=== PATIENT | female | born 1940 | race Caucasian/White ===

== ENCOUNTER 2020-05-25 14:12 | Outpatient (RCR) | payer MEDICARE, SELFPAY ==
[2020-03-20 13:30] VITALS: BMI 32.4
== END 2020-05-25 23:59 ==
LOC: IMMUN 14:12
PROVIDERS: PCP Internal Medicine; Referring Provider Family Medicine; Visit Provider Family Medicine
DX: Z23 Encounter for immunization (principal)
CPT/HCPCS: 0011A; 0012A; 91301

== ENCOUNTER → 2021-11-27 | Outpatient (CLI) | payer MEDICARE, OTHER, SELFPAY ==
--- NOTE | 2021-11-27 13:52 | ECHOD_ITS ---
Reason For Study: HTN Procedure This was a 2D Doppler, Color Flow transthoracic echocardiogram. Exam performed in department. Left Ventricle Normal LV size. Left ventricular systolic function is normal. The estimated ejection fraction is 60 %. Stage 1 diastolic dysfunction. No regional wall motion abnormalities noted. Right Ventricle Normal RV size. Normal systolic function. Atria Normal left atrium. Normal right atrium. Mitral Valve Normal mitral valve. Tricuspid Valve Normal tricuspid valve. Mild tricuspid valve insufficiency. Pulmonary artery systolic pressure is 20 mmHg. Aortic Valve Normal aortic valve. Trisinus/trileaflet aortic valve. Pulmonic Valve Normal pulmonic valve. Great Vessels Normal aortic root. The pulmonary artery is normal size. Normal inferior vena cava. Pericardium/Pleural No pericardial effusion. MMode/2D Measurements & Calculations LVIDd: 5.1 cm IVSd: 1.1 cm Ao root diam: 3.0 cm LVIDs: 3.0 cm LVPWd: 1.1 cm RVDd: 2.9 cm FS: 41.2 % LAV(MOD-bp): 40.4 ml LVAd ap4: 24.0 cm2 SV(MOD-sp4): 42.6 ml LAV(MOD-bp) Indexed: 22.1 ml/m2 LVLd ap4: 7.4 cm LAV(MOD-sp2): 41.0 ml EDV(MOD-sp4): 63.0 ml LAV(MOD-sp4): 33.5 ml EDV(sp4-el): 66.2 ml LVAs ap4: 11.8 cm2 LVLs ap4: 5.9 cm ESV(MOD-sp4): 20.4 ml ESV(sp4-el): 20.2 ml EF(MOD-sp4): 67.6 % EF(sp4-el): 69.5 % SV(sp4-el): 46.0 ml LA A4 area: 12.8 cm2 LA dimension(2D): 4.0 cm RA A4 area: 8.8 cm2 Doppler Measurements & Calculations MV E max oscar: 61.3 cm/sec Lat Peak E' Oscar: 5.0 cm/sec Med Peak E' Oscar: 4.1 cm/sec MV A max oscar: 105.3 cm/sec E/E' lat: 12.2 E/E' med: 14.9 MV E/A: 0.58 Ao V2 max: 135.4 cm/sec LV V1 max: 106.5 cm/sec PA V2 max: 97.2 cm/sec Ao max P.3 mmHg LV V1 max P.5 mmHg Ao V2 mean: 93.5 cm/sec Ao mean P.9 mmHg Ao V2 VTI: 28.1 cm TR max oscar: 203.6 cm/sec TR max P.6 mmHg ECHO/Echo Complete Interpretation Summary Normal LV size. Left ventricular systolic function is normal. The estimated ejection fraction is 60 %. Stage 1 diastolic dysfunction. Ordering Physician: Brandyn Luis Referring Physician: Alfredo Arenas Performed By: Renata Juarez, RDCS, RVT
== END | disposition home or self-care (01) ==
PROVIDERS: PCP Internal Medicine; Visit Provider Internal Medicine Cardiovascular Disease
DX: I10 Essential (primary) hypertension (principal); R00.2 Palpitations
CPT/HCPCS: 93306

== ENCOUNTER → 2022-01-02 | Outpatient (CLI) | payer MEDICARE, OTHER, SELFPAY ==
--- NOTE | 2022-01-02 15:19 | MRI_ITS ---
STUDY: MRI LUMBAR SPINE WITHOUT CONTRAST REASON FOR EXAM: Female, 81 years old. Back pain with right radiculopathy, spinal stenosis TECHNIQUE: Standardized fat and water weighted pulse sequences were obtained in the sagittal and axial planes. COMPARISON: None FINDINGS: T12-L1: Mild disc bulge and facet arthrosis. No spinal canal or neural foraminal stenosis. Normal lumbar lordosis. Levoscoliosis centered on L3 with mild rightward listhesis of L2 on L3, mild leftward listhesis of L3 and L4, and rightward disc height loss and endplate disease with mild edema at both levels. Normal conus medullaris that terminates at the level of T12-L1. L1-2: Disc bulge, mild facet arthrosis, and epidural lipomatosis with mild spinal canal stenosis. L2-3: Disc bulge eccentric to the right, mild facet arthrosis, and epidural lipomatosis with mild spinal canal stenosis. Moderate right neural foraminal stenosis. L3-4: Disc bulge, moderate right and mild left facet arthrosis, and epidural lipomatosis with moderate spinal canal stenosis and partial CSF effacement. Moderate right neural foraminal stenosis. L4-5: Mild disc bulge, epidural lipomatosis, and mild facet arthrosis with mild spinal canal stenosis. Mild left neural foraminal stenosis. L5-S1: Disc bulge eccentric to the left, mild right facet arthrosis, and moderate left facet arthrosis. No spinal canal stenosis. Mild to moderate left neural foraminal stenosis. Normal visualized sacral ala. There is mild paraspinal muscular atrophy. MRI/Spine Lumbar (Routine) IMPRESSION: 1. Leftward subluxation of L3 with respect to L2 and L4, with moderate rightward spinal canal stenosis at L2-3 and L3-4. 2. Disc bulge causes mass effect in the lateral recesses on the traversing right L3 nerve root at L2-3, and both L4 nerve roots at L3-4. 3. There is also moderate L3-4 spinal canal stenosis. Electronically Signed: Aris Key MD at 4:50 EDT ,
== END | disposition home or self-care (01) ==
LOC: MRI 15:19
PROVIDERS: PCP Internal Medicine; Visit Provider Orthopaedic Surgery
DX: M48.061 Spinal stenosis, lumbar region without neurogenic claudication (principal)
CPT/HCPCS: 72148

== ENCOUNTER → 2022-07-01 | Outpatient (CLI) | payer MEDICARE, OTHER, SELFPAY ==
--- NOTE | 2022-07-01 15:43 | MRI_ITS ---
EXAM: MR LEFT LOWER EXTREMITY WITHOUT INTRAVENOUS CONTRAST, KNEE CLINICAL INDICATION: pain TECHNIQUE: Multiplanar and multisequence MR images of the left knee without intravenous contrast. This report was created using [employer] report generation technology. COMPARISON: None. FINDINGS: BONES/JOINTS: Relatively mild tricompartmental degenerative changes for age. EXTENSOR MECHANISM: Unremarkable. MEDIAL MENISCUS: Complex tear of the posterior horn of the medial meniscus with extension of a flap of tissue cranially and peripherally resulting in bulging of the proximal to midportion of the medial collateral ligament. LATERAL MENISCUS: Unremarkable. MEDIAL CAPSULE/SUPPORTING STRUCTURES: See above. LATERAL CAPSULE/SUPPORTING STRUCTURES: Unremarkable. Lateral collateral ligamentous complex, inclusive of the popliteal tendon, are intact. ANTERIOR CRUCIATE LIGAMENT: Unremarkable. Intact. POSTERIOR CRUCIATE LIGAMENT: Unremarkable. Intact. MUSCLES: Unremarkable. CARTILAGE: Unremarkable. Intact. FLUID: Moderate suprapatellar joint effusion. Small to moderate-sized Moran''s cyst measuring 3.6 x 1.5 cm without evidence of leakage or rupture. OTHER SOFT TISSUES: Prepatellar tendon subcutaneous edema. MRI/Lower Ext Joint Only (Routine) IMPRESSION: 1. Complex tear involving the posterior horn of the medial meniscus. 2. Moderate joint effusion with moderate-sized Moran''s cyst. Electronically Signed: Aditya Kent MD at 1:48 EST ,
== END | disposition home or self-care (01) ==
LOC: MRI 15:28
PROVIDERS: PCP Internal Medicine; Referring Provider Orthopaedic Surgery; Visit Provider Orthopaedic Surgery
DX: M17.11 Unilateral primary osteoarthritis, right knee (principal)
CPT/HCPCS: 73721

== ENCOUNTER 2022-07-29 06:08 | Day surgery (SDC) | payer MEDICARE, OTHER, SELFPAY ==
--- NOTE | 2022-07-24 12:55 | EKG12_ITS ---
Test Reason : PREOP Blood Pressure : / mmHG Vent. Rate : 064 BPM Atrial Rate : 064 BPM P-R Int : 166 ms QRS Dur : 090 ms QT Int : 410 ms P-R-T Axes : 045 -02 053 degrees QTc Int : 422 ms Normal sinus rhythm Normal ECG Confirmed by COLEMAN BARLOW, COLLEEN ([id number]), videotape editor DEB CAMPBELL ([id number]) on 07/28/2022 10:43:59 AM Referred By: Abran Han Confirmed By:TATY CEE MD
[2022-07-24 13:42] LABS: Hematocrit 42.2 % (37-47); Hemoglobin 14.6 g/dL (12.0-15.0); Mean Corp Hgb Conc 34.6 g/dL (32-36); Mean Corpuscular Hgb 30.6 pg (27.0-32.0); Mean Corpuscular Volume 88.5 fL (81-99); Mean Platelet Vol. 10.5 fl (6.2-12.0); Platelet Count 206 K/mm3 (150-450); RBC Distribution Width CV 12.5 % (11.6-14.6); RBC Distribution Width SD 40.6 fl (35.1-43.9); Red Blood Count 4.77 M/mm3 (4.2-5.4); White Blood Count 6.9 K/mm3 (4.4-11.0)
[2022-07-24 14:08] LABS: Prothrombin Time (Protime)PT. 13.2 SECONDS (11.7-14.9)
[2022-07-24 14:12] LABS: Anion Gap 6 (5-15); BUN 14 mg/dL (7-18); BUN/Creat Ratio 16.7 RATIO (10-20); Calcium,Total 9.8 mg/dL (8.5-10.1); Chloride 100 mmol/L (98-107); Creatinine, Serum 0.84 mg/dL (0.55-1.02); EST Glomerular Filtration Rate 69 mL/min (>60); Est Glom Filt Rate - Afr Amer 84 mL/min (>60); Glucose 112 mg/dL (74-106); Potassium 3.9 mmol/L (3.5-5.1); Sodium Level 137 mmol/L (136-145)
[2022-07-29] VITALS (7 sets, daily range): BP systolic 139–172; BP diastolic 59–70; PULSE 67–81; RESP 14–16; TEMP 36.2–36.4; O2SAT 92–96; BMI 33.4
[2022-07-29] MEDS: Lactated Ringers 1,000 ML 15 ML IV ×2 (07:10→09:07)
--- NOTE | 2022-07-29 07:45 | HP.PCM_ITS ---
History and Physical Date of Admission: 07/29/22 [facility] [place] [address] OFFICE VISIT Date of Service:? 07/07/22 MR#: [id number] Acct: [id number] Name:RICK CARDENAS V Rep #: [id number] : 1940 ? ? Provider: Dr. Abran Han, DO Age/Sex:? 81/F ? ? Location: [facility] Status: Signed Intake Intake Visit Reasons:?RIGHT KNEE Chief Complaint: right knee Allergies acetaminophen [From Vicodin] Allergy (Intermediate, Verified 05/06/22 13:04) red face, vomitinghydrocodone [From Vicodin] Allergy (Intermediate, Verified 05/06/22 13:04) red face, vomiting Medications atenolol 50 mg tablet 75 mg PO DAILY 02/17/19 [History Confirmed 07/07/22] calcium carbonate 600 mg calcium (1,500 mg) tablet (Calcium) 600 mg PO BID PRN 02/17/19 [History Confirmed 07/07/22] fish, borage, flaxseed oils-omega 3,6,9 comb no.1 1,200 mg capsule 1 cap PO DAILY 02/17/19 [History Confirmed 07/07/22] nlyocguzfrp-pilyfkjuj-mlj C-Mn 500 mg-400 mg capsule (Glucosamine Chondroitin Maximum Strength) 1 cap PO BID 02/17/19 [History Confirmed 07/07/22] hydrochlorothiazide 25 mg tablet 25 mg PO DAILY 02/17/19 [History Confirmed 07/07/22] lactobacillus combination no.8 3 billion cell capsule (Adult Probiotic) 3,000 mmu cells PO DAILY 02/17/19 [History Confirmed 07/07/22] levothyroxine 75 mcg tablet 75 mcg PO DAILY 02/17/19 [History Confirmed 07/07/22] jezyulpf-yeg-ihamv acid 0.4 mg-lycopene 300 mcg-lutein 250 mcg tablet (Centrum Silver) 1 tab PO DAILY 02/17/19 [History Confirmed 07/07/22] ramipril 10 mg capsule 10 mg PO BID 02/17/19 [History Confirmed 07/07/22] simvastatin 20 mg tablet 20 mg PO QHS 10/24/19 [History Confirmed 07/07/22] amlodipine 5 mg tablet 2.5 mg PO BID #180 tabs 11/12/21 [Rx Confirmed 07/07/22] cyclobenzaprine 10 mg tablet 10 mg PO HS PRN 11/12/21 [History Confirmed 07/07/22] prednisone 10 mg tablet 10 mg PO DAILY 11/12/21 [History Confirmed 07/07/22] acetaminophen 500 mg capsule 1,000 mg PO Q6H PRN 05/06/22 [History Confirmed 07/07/22] PFSH Medical History? BPPV (benign paroxysmal positional vertigo) Cataract (lens) fragments in eye following cataract surgery, bilateral Essential hypertension Hepatitis B surface antigen positive Hyperlipidemia Hypothyroidism Intermittent second degree atrioventricular block Obesity REBECCA (obstructive sleep apnea) Osteoarthritis Palpitations Restless leg syndrome Surgical History? History of dilatation and curettage History of rotator cuff surgery (2009) History of tonsillectomy History of tubal ligation Family History? Mother Cancer ?? ? lungFather?? ,? Fatal [place] 65 CAD (coronary artery disease) Myocardial infarction,? Onset Age: 51Sister HypertensionGrandmother?? ,? Age 45 CAD (coronary artery disease) Myocardial infarction Social History? Smoking Status:? Never smoker HPI RIGHT KNEE Details: Parts of this documentation were recorded by a scribe, this documentation accurately reflects the service provided and the decisions made by me, Dr. Abran Han, DO 07/07/22 0129. RICK CHARLTON is a 81 year old F here today for F/U on the right knee after having an MRI. She states that she continues to have the right medial knee pain and she also feels like the knee is weak and wants to give out on her. She did see Dr. Jarquin last week for his low back. She states that part of the knee problem may be the back because of antalgic gait. Ortho Exam General General: Yes no acute distress Neurologic: Yes alert and Yes oriented x3 Psychologic: Yes reasonable and appropriate Right Knee Skin/Wound: Yes CDI, No erythema, No ecchymosis and No swelling Knee ROM: Yes ROM-Extension -20 to 0 and No ROM-Flexion 0-140 Examination: Yes Med jt line tenderness, No Lat jt line tenderness, No Crepitus, No Pain with flexion, No Pain with extention, No Anahi's Test, No TTP Pes Anserine and No Illiotibial band tenderness Stability: NML: Anterior Drawer, NML: Posterior Drawer, NML: Valgus 0, NML: Valgus 30, NML: Varus 0 and NML: Varus 30 Patella Translation: 1 Patella Grind: No KNEE: negative SLR. intact sensation to light touch throughout all dermatomes and no gross motor deficit. Left Knee Patella Translation: 1 Right Hip Special Tests: No TTP Greater Troch Supplemental Info 07/01/2022 MRI right knee: complex tear posterior horn medial meniscus moderate joint effusion, mild degenerative change throughout knee worse medial compartment 05/19/2022 x-ray right knee: Unchanged from previous imaging 05/19/2022 x-ray right hip: Mild joint space narrowing 01/02/2022 MRI lumbar spine: Leftward subluxation of L3 with respect to L2 and L4 with moderate rightward spinal canal stenosis L2-L3 L3-L4.? Disc bulge causing mass-effect and lateral recess on traversing right L3 nerve root at L2-L3 and both L4 nerve roots at L3-L4 also moderate L3-L4 spinal stenosis 12/25/2021 x-ray right knee mild medial joint space narrowing Coding Level of Care Code Off vis,est,level 3 Diagnoses Tear of medial meniscus of right knee? S83.241A Osteoarthritis of right knee? M17.11 Assessment and Plan Assessment and Plan (1) Tear of medial meniscus of right knee: ?Status:?Acute (2) Osteoarthritis of right knee: ?Status:?Acute Plan Personally reviewed the right knee MRI. Patient educated that she does have a medial meniscus tear of the knee along with arthritis of the knee. Educated that the meniscus tear can cause pain of the knee and feelings of instability/giving out of the knee. She could have a right knee partial medial meniscectomy. Reviewed the pre-operative plans with the patient. Risks and benefits of the procedure were fully explained, including but not limited to infection, neurovascular injury, continued pain, arthritis, stiffness, need for further surgery, re-injury, DVT, PE, general risks of anesthesia, and loss of limb or life. The patient understands all the risks and does wish to proceed with written consent for right knee arthroscopy partial medial meniscectomy. She would be able to walk on this right away. She wishes to wait about a few weeks prior to having the knee arthroscopy d/t husbands medial concerns.? She will contact us when she is ready to proceed. Follow up as needed or sooner if pain, swelling, numbness or associated symptoms , or concerns develop.? All questions answered. Patient in agreement of plan. 07/07/22 1428 <Electronically signed by Abran Han DO> Date Abran Han DO Cosigner Signature: Date (if applicable) ? CC: ? ~ I have examined the patient and the H&P has been reviewed. There are no clinical changes since date of exam.
[2022-07-29] MEDS: Cefazolin 2 GM in 0.9% Normal Saline 100 ML IV (08:00)
[2022-07-29] MEDS: Epinephrine (1 mg/ml) 1 MG/ML VIAL (08:31)
[2022-07-29] MEDS: MethylPREDNISolone Acetate 40 MG/ML Vial IM (08:40)
[2022-07-29] MEDS: Lidocaine 1% /Epi 1:100 (20ml) 20 ML Vial (08:44)
--- NOTE | 2022-07-29 08:52 | OP.PCM_ITS ---
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 Risk benefits and alternatives of the procedure were reviewed including risk of bleeding infection nerve artery tissue damage need for further surgery continued pain and expected postoperative course. Procedure: The patient was met in the preoperative holding area. The operative extremity was identified by both patient and physician and family and marked. Patient was brought back to the operating room on a wheeled cart and transferred to the operating table in the supine position. Anesthesia was started. A well- padded tourniquet was placed on the operative extremity. A lower extremity leg tello was secured to the operative extremity. The contralateral extremity was well-padded and the end of the bed was flexed to 90 degrees. The patient was prepped and draped in the usual sterile fashion. A timeout was called to ensure the proper patient, procedure, and extremity were being contemplated. 0.5% Marcaine with epinephrine was injected into the planned incisional areas under the skin only. An Esmarch was used to exsanguinate the extremity and the tourniquet was inflated. An 11 blade scalpel was used to make a stab incision in the anterior lateral portal. The arthroscope was inserted into the intercondylar notch and inflow and outflow tubes were attached. Arthroscopic visualization began. The medial compartment was entered. An 18-gauge spinal needle was used to establish the placement for anterior medial portal. An 11 blade scalpel was used to make a stab incision. Blunt probe was inserted followed by a meniscal probe. Immediately there was noted to be a large tear of the body of the medial meniscus with use of arthroscopic biting instruments and shaver and ArthroCare wand partial medial meniscectomy was performed there was noted to be grade 2 approaching grade III chondromalacia of the medial compartment and throughout the knee the ACL was found to be intact. The lateral compartment was entered there is a small radial root tear of the posterior horn of the lateral meniscus which was excised with a shaver The arthroscope was switched to the medial portal to complete the procedure. The medial and lateral gutters were inspected and were free of loose bodies. The patellofemoral joint was inspected there was some grade 2 approaching grade 3 cartilage wear. There was good patellar tracking. The knee was thoroughly irrigated and drained. An intra-articular injection with 5 cc 0.5% Marcaine plain and 40 mg of Depo-Medrol was injected intra-articularly. The arthroscope was removed the portals were closed with 3-0 nylon arthroscopic stitches. Followed by Xeroform 4 x 4's ABDs web roll and an Goran wrap. The tourniquet was let down and the drapes were removed. All counts were correct. The patient was brought back to the PACU in stable condition.
--- NOTE | 2022-07-29 08:55 | DCINST_ITS ---
Discharge Instructions Diet Discharge Diet: No restrictions Activity Weight Bearing Status: Weight bearing as tolerated Dressing / Incision Call your doctor if you observe: Shortness of breath and Chest pain Additional Dressing/Incision Instructions:: Ice and elevate next 72 hours .keep dressing on clean and dry for 48 hours then may remove begin showering daily but do not submerge in tub or pool. After shower may apply Band-Aids . Encourage knee range of motion weightbearing as tolerated, use crutches until confident in knee then may discontinue. No strenuous activity. When not ambulating keep iced and elevated next 72 hours. Do not mix pain medication with recreational drugs or alcohol only take as prescribed can be addictive and abusive, call with any questions or concerns. Follow Up Care Please Follow Up With: Abran Han DO When: 2 weeks Test Results: Test results from this visit will be discussed in further detail at your follow- up appointment, if applicable. Discharge Plan Admission Primary Reason for Your Visit: Right knee arthroscopy Attending Provider: Abran Han Primary Care Provider: Alfredo Arenas Discharge Orders/Prescriptions Prescriptions: New tramadol 50 mg tablet 50 - 100 mg PO Q6H Qty: 25 0RF Continued ramipril 10 mg capsule 10 mg PO BID atenolol 50 mg tablet 75 mg PO QHS hydrochlorothiazide 25 mg tablet 25 mg PO DAILY simvastatin 20 mg tablet 20 mg PO QHS levothyroxine 75 mcg tablet 75 mcg PO DAILY Centrum Silver 0.4-300-250 mg-mcg-mcg tablet 1 tab PO DAILY calcium carbonate [Calcium 600] 600 mg calcium (1,500 mg) tablet 600 mg PO DAILY Adult Probiotic 3 billion cell capsule 3,000 mmu cells PO DAILY trqjmezcxsk-usjswkepf-fmp C-Mn [Glucosamine Chondroitin MaxStr] 500-400 mg capsule 1 cap PO DAILY fish,bora,flax oils-om3,6,9no1 1,200 mg capsule 1 cap PO DAILY acetaminophen 500 mg capsule 1,000 mg PO Q6H PRN (Reason: Pain) ascorbic acid (vitamin C) [Vitamin C] 500 mg Tablet,Chewable 500 mg PO DAILY amlodipine 5 mg tablet 5 mg PO QHS Referrals / Follow Up: Alfredo Arenas MD [Primary Care Provider] - Disposition Disposition (needs filled in before D/C Order can be placed): Home, Self Care
[2022-07-29] MEDS: Cefazolin 1 GM/50 ML BAG IV (09:40)
--- NOTE | 2022-07-29 10:15 | SUR.PHASEII ---
called physical therapy to see pt.
== END 2022-07-29 10:55 | disposition home or self-care (01) ==
LOC: SDC 06:08 → AC 06:08
PROVIDERS: PCP Internal Medicine; Referring Provider Orthopaedic Surgery; Visit Provider Orthopaedic Surgery
PROC: (CPT 29870; principal; 2022-07-29 07:40)
DX: S83.231A Complex tear of medial meniscus, current injury, right knee, initial encounter (principal); S83.281A Other tear of lateral meniscus, current injury, right knee, initial encounter; X58.XXXA Exposure to other specified factors, initial encounter; M17.11 Unilateral primary osteoarthritis, right knee; I10 Essential (primary) hypertension; E78.5 Hyperlipidemia, unspecified; E03.9 Hypothyroidism, unspecified; E66.9 Obesity, unspecified; Z68.33 Body mass index [BMI] 33.0-33.9, adult; Z79.890 Hormone replacement therapy; Z79.899 Other long term (current) drug therapy
CPT/HCPCS: 29880; 01400; 36415; 80048; 85027; 85610; 93005; 97161; J7120; J2405

== ENCOUNTER → 2024-02-29 | Outpatient (CLI) | payer MEDICARE, OTHER, SELFPAY ==
[2024-02-29 14:23] LABS: Absolute Lymphocyte Count 2.31 X10^3/uL (0.83-4.51); Absolute Neutrophil Count 4.5 X10^3/uL (2.0-7.7); Basophil# 0.04 X10^3/uL; Basophil% 0.5 % (0-1); Eosinophil# 0.11 X10^3/uL; Eosinophils% 1.4 % (0-5); Hemoglobin 15.1 g/dL (12.0-15.0); Lymphocyte # 2.31 X10^3/ul (0.83-4.51); Lymphocyte % 30.4 % (19-41); Mean Corp Hgb Conc 34.3 g/dL (32-36); Mean Corpuscular Volume 87.3 fL (81-99); Mean Platelet Vol. 10.6 fl (6.2-12.0); Monocyte# 0.64 X10^3/uL; Monocyte% 8.4 % (0-10); NRBC Flagged by Analyzer 0 % (0-5); Neutrophil # 4.49 X10^3/uL (2.7-7.7); Platelet Count 233 K/mm3 (150-450); RBC Distribution Width CV 12.6 % (11.6-14.6); RBC Distribution Width SD 39.8 fl (35.1-43.9); Red Blood Count 5.04 M/mm3 (4.2-5.4); White Blood Count 7.6 K/mm3 (4.4-11.0)
[2024-02-29 15:15] LABS: BNP,B-Type NATRIURETIC PEPTIDE 33.5 pg/mL (0-100)
[2024-02-29 15:17] LABS: ALB/GLOB Ratio 1.1 RATIO (0.9-2.4); AST(SGOT) 15 U/L (15-37); Alanine Aminotransfer ALT/SGPT 29 U/L (13-56); Albumin, Serum 3.9 g/dL (3.2-5.0); Alkaline Phosphatase 60 U/L (45-117); Anion Gap 7 (5-15); BUN 23 mg/dL (7-18); BUN/Creat Ratio 23.2 RATIO (10-20); Calcium,Total 10.2 mg/dL (8.5-10.1); Chloride 100 mmol/L (98-107); Creatinine, Serum 0.99 mg/dL (0.55-1.02); EST Glomerular Filtration Rate 57 mL/min (>60); Est Glom Filt Rate - Afr Amer 69 mL/min (>60); Globulin 3.7 g/dL (2.2-4.2); Glucose 117 mg/dL (74-106); Potassium 3.4 mmol/L (3.5-5.1); Protein, Total 7.6 g/dL (6.4-8.2); Sodium Level 137 mmol/L (136-145)
== END | disposition home or self-care (01) ==
LOC: LAB 13:31
PROVIDERS: PCP Internal Medicine; Referring Provider Nurse Practitioner Family; Visit Provider Nurse Practitioner Family
DX: R06.09 Other forms of dyspnea (principal); I10 Essential (primary) hypertension
CPT/HCPCS: 36415; 80053; 83880; 85025

== ENCOUNTER 2024-09-27 10:00 | Outpatient (RCR) | payer MEDICARE, OTHER, SELFPAY ==
--- NOTE | 2024-08-29 19:58 | HP.PTEVAL_ITS ---
Patient's Visit Information Visit Information Visit Information: RICK CHARLTON is a 84 year old F referred to Physical Therapy by Dr. Abran Han DO with a diagnosis of LOW BACK PAIN. Date of Evaluation: 08/29/24 Physical Therapist: Hetal Jeronimo PT, Cert MDT Visit Plan Frequency: 2x /Week Duration: 4-6 Weeks Plan: NO LIFTING MORE THAN 25 LBS. POSTURE CORRECTION/STRENGTHENING, INSTRUCTION IN APPROPRIATE BODY MECHANICS AND ACTIVITY MODIFICATIONS. DLS STARTING WITH A NEUTRAL SPINE PROGRESSING ROM TOLERATED. GISELLE LE ROM, STRETCHING AND STRENGTHENING. HEP INSTRUCTION. Subjective Subjective: Work/Leisure: RETIRED. Present symptoms: R LOW BACK, R HIP, AND THIGH. INTERMITTENT L LBP TOO. PATIENT DENIES R LE NUMBNESS AND TINGLING. Present since: CHRONIC LBP FOR MANY YEARS. HAS BEEN GOING INTO THE R HIP AND THIGH FOR AT LEAST 2 YEARS. Pain Scale: WORST 6/10, LEAST 0/10 Currently: 2/10 Is it getting better, worse or staying the same: STAYING THE SAME Commenced as a result of: NO APPARENT REASON Worse: MAYBE TOO MUCH POUNDING ON THE TREADMILL, PROLONGED SITTING, VACUUMING, GROCERY SHOPPING, STANDING, COOKING, STANDING TO TALK, HALF BENDING, WEEDING, BENDING OVER BED TO PUT PUZZLE AWAY. LIFTING EVEN A GALLON OF MILK. Better: WALK AROUND THE HOUSE TO RELEASE IT, EXTRA STRENGTH TYLONOL, SUPINE WITH LEGS UP ON BALL AND ROLL BALL BACK AND FORTH. WALKING ON TREADMILL 2.4 X 1 MILE FOR 30 MIN. Disturbed sleep: NO Previous history/Previous treatment: CHRONIC LBP FOR MANY YEARS. 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 THOMAS, X=RAYS, MRI, AND CHITRA'S WITH DR. ELIZABETH UNTIL ~ 3 YEARS AGO. STATES AT THE END OF THIS YEAR HER BACK STARTED BOTHERING HER AGAIN AND HER WEIGHT WAS GOING UP SO SHE HAD A CONSULT WITH DR. APPLE MAR 2024. AFTER THAT SHE STATES SHE STARTED EXERCISING AGAIN AND WAS DOING GOOD UNTIL NOW. SHE CONSULTED WITH DR. HAN THIS TIME BECAUSE SHE THOUGHT IT WAS HER HIP. SHE ALSO HAS A HISTORY WITH DR. HAN WITH R KNEE MENISCUS SX APPROX 2022. STARTING ABOUT 4 YEARS AGO PATIENT REPORTS SHE DID A LOT OF BENDING TO HELP RECOVER FROM THR THEN TKR AND DID ALL THE COOKING AND HOUSE CLEANING TOO. STILL BENDS TO HELP PUT SOCKS ON. STARTED GETTING HELP WITH HOUSE CLEANING IN APRIL 2024 - VACUUMING WAS REALLY PAINFUL PRIOR. Treatment this episode: 08/16/24 - WOKE UP WITH PAIN AND COULD BARELY WALK FOR NO APPARENT REASON. BY THE TIME SHE WANT TO SEE DR. HAN A WEEK LATER IT HAD CALMED DOWN. PREDNISONE - ONLY ABLE TO TAKE ONE DOSE DUE TO SIDE EFFECTS. CURRENTLY SHE IS BACK TO HER PRETTY NORMAL CHRONIC BACK AND RIGHT HIP/THIGH PAIN. SHE ALSO REPORTS SHE IS CURRENLTY UNDER QUITE A BIT OF STRESS - LOST A SON 3 YEARS AGO AND IS ON CHEMO NOW AND TRANSFUSIONS. STATES SHE IS CONCERNED BECAUSE SHE KNOWS DR. HAN DOES NOT LIKE HER DOING THE TREADMILL BUT SHE REALLY LIKES TO DO IT. Coughing/sneezing/straining: NEGATIVE FOR INCREASED PAIN. Gait: IT HURT IN THE R LOW BACK AREA. CAN CAUSE A LIMP. HURTS MORE WITH FASTER WALKING. LESS WHEN SLOWS DOWN. DOES NOT USE AD'S. DENIES FALLS. Bowel or Bladder Dysfunction: NO Accidents: NO Unexplained weight loss: NO Imagin08/24/24: PELVIC X-RAY: IMPRESSION: Levoscoliosis and degenerative changes of the lumbar spine. Mild degenerative changes of both hips. Mild arthritic changes of the SI joints The patient appears to be constipated. OTHER: PATIENT REPORTS HER BLOOD PRESSURE IS HIGH AND SHE HAS WHITE COAT SYNDROME. STATES SHE IS UNABLE TO VERBALIZE TARGET NUMBERS SHE HAS BEEN GIVEN TO TRY TO KEEP HER BLOOD PRESSURE WITHIN. PMH/Recent major surgery: Anxiety Alcohol use History of steroid therapy Thyroid disease Back pain Injury of head and neck Non-smoker Shortness of breath on exertion Hypertension Obesity Hepatitis B surface antigen positive BPPV (benign paroxysmal positional vertigo) Palpitations Restless leg syndrome Intermittent second degree atrioventricular block Osteoarthritis Essential hypertension Hypothyroidism Hyperlipidemia S/P carpal tunnel release Hx of left cataract extraction Hx of right cataract extraction History of rotator cuff surgery 2010 History of tonsillectomy History of tubal ligation History of dilatation and curettage Objective Objective: Sitting/Standing Posture: R ILIAC CREST HIGHER THAN L. Other Observations: INDEP TRANSFER SIT TO STAND WITHOUT UE ASSIST. INDEP GAIT WITHOUT LOB OR AD BUT DECREASED CADADANCE AND GREATLY DECREASED GISELLE STRIDE LENGTH TO AVOID PAIN ESPECIALLY R LE. Sensory deficit: GISELLE LE LIGHT TOUCH SENSATION GROSSLY INTACT AND SYMMETRICAL ROM deficit: TIGHT GISELLE HS R > L. TIGHT GISELLE CALVES AND HIP FLEXORS. Motor deficit: GISELLE LE'S GROSSLY 5/5 EXCEPT R HIP 4/5. Dural Signs: NEGATIVE GISELLE LE'S. Lumbar mvmt loss: flex - MIN - NE ext - KAY - INCREASES R LBP - NW R SG - MOD - INCREASES R LBP - NW L SG - MIN - NE Core strength: FAIR Palpation: VERY TIGHT GISELLE LUMBAR PARASPINALS. Balance/Special Test Scores Oswestry Low Back Score: 14 Goals Goal 1:: DECREASE C/O LBP BY AT LEAST 50% TO EASE ADL'S Goal Time Frame: 4-6 Weeks Goal 2:: IMPROVE PERSONAL CARE, LIFTING, WALKING, STANDING, TRAVEL AND HOMEMAKING FUNCTION WITH AT LEAST 5 POINT IMPROVEMENT IN BACK OSWESTRY QUESTIONNARIRE SCORE. Goal Time Frame: 4-6 Weeks Goal 3:: INSTRUCT IN PROPHYLAXIS Goal Time Frame: 4-6 Weeks Rehabilitation Potential Physical Therapy Diagnosis: CORE STIFFNESS AND WEAKNESS WITH LE STIFFNESS, R HIP WEAKNESS AND ALTERED GAIT. Rehabilitation Potential: Good Anticipated Interventions Patient/Client Instruction: Educate patient on: Condition, Plan of Care and Risk Factors For the Purpose of:: To improve self management Therapeutic Exercise to Include: Strength training, Body mechanics, Postural training, Flexibilty training, Neuromotor development, In an aquatic setting and Dynamic Lumbar Stabilization For the Purpose of:: To decrease pain, To improve muscle performance and motor function, To improve ability to perform ADL's, To improve performance and independence with ADL's, To improve ability of physical actions for home/community/work/leisure, To improve gait and locomotor functions, To increase flexibility/ROM and To improve self management Cryotherapy (ice pack, ice massage): Yes Thermo therapy (hot pack): Yes Ultrasound (thermal/non thermal): Yes For the Purpose of:: To decrease pain, To decrease swelling/inflammation and To improve nutrient delivery to tissue Text: Thank you for the opportunity to evaluate your patient. For Medicare and Medicare HMO plans, please review the plan of care and approve it. It will need to be FAXED BACK to us at [phone] for Medicare purposes. For Medicare only, by signing this I certify the plan of care. Please let me know if there are questions or concerns regarding this plan of car e. Physician Signature: Date:
--- NOTE | 2024-09-27 13:01 | HP.PTDCSUM ---
Discharge Summary D/C summary: It has been my pleasure to treat RICK CHARLTON referred by Dr. Abran Han DO, with the diagnosis of LOW BACK PAIN for a total of 7 visit(s). Discharge Date: 09/27/24 Please see the following information for a summary of their discharge status. Subjective Subjective: PATIENT REPORTS SHE ISN'T STIFF GETTING UP IN THE MORNING NOW AND SHE LIKES DOING THE EX'S. PATIENT REPORTS COMPLIANCE WITH HOME INSTRUCTONS. STATES SHE IS BACK TO USING THE TREADMILL EVEN THOUGH SHE KNOWS DR. HAN DOESN'T LIKE HER DOING IT. SHE STATES SHE IS BEING MORE MINDFUL OF MODIFYING HER EX'S AND ACTIVITIES WHEN SHE FEELS PAIN. PATIENT REPORTS SHE IS 75% BACK TO HER NORMAL CHRONIC CONDITION BUT SHE IS STILL HAVING LOW BACK PAIN LIMITING HER STANDING TO DO THINGS LIKE SHOWER AND SHE IS STILL GETTING R HIP AND THIGH PAIN SITTING AND WALKING FAST TO THE MAILBOX. PATIENT REQUESTING TO BE DISCHARGED DUE TO NEEDING TO BE WITH AND HUSBANDS SCHEDULE. Pain R LOW BACK: Pain Intensity (Out of 10): 0 Overall Improvement % Improvement: 75 Objective Objective/Function: PATIENT WAS SEEN TODAY FOR RE-ASSESSMENT OF PROGRESS TOWARD THE SET PT GOALS AND THE NEED FOR FURTHER PHYSICAL THERAPY VS READINESS FOR DISCHARGE. PATIENT VERBALIZES VERY GOOD UNDERSTANDING OF INSTRUCTIONS THAT HAVE BEEN GIVEN AND STATES SHE FEELS READY FOR DISCHARGE AND NEEDS TO BE DISCHARGED TO PRIORITIZE HER . UPON EXAM TODAY: Lumbar mvmt loss: flex - MIN - NE ext - KAY - NE R SG - MOD - MILD INCREASE IN LBP - NW L SG - MIN - NE Core strength: FAIR Palpation: GISELLE LUMBAR PARASPINALS REMAIN VERY TIGHT BUT PATIENT RESPONDS WELL TO THER EX AND REPORTS SHE ENJOYS THEM. Goals Goal 1:: DECREASE C/O LBP BY AT LEAST 50% TO EASE ADL'S Goal Progress: Goal Met Goal 2:: IMPROVE PERSONAL CARE, LIFTING, WALKING, STANDING, TRAVEL AND HOMEMAKING FUNCTION WITH AT LEAST 5 POINT IMPROVEMENT IN BACK OSWESTRY QUESTIONNARIRE SCORE. Goal Progress: Progressing Goal 3:: INSTRUCT IN PROPHYLAXIS Goal Progress: Goal Met Plan Plan: D/C TO HEP. PATIENT AGREEABLE. D/C Information d/c sentence: If there are questions or concerns regarding this patient's physical therapy, please feel free to call me at [phone]. Thank you for the referral of this patient. Sincerely, Hetal Jeronimo, PT, Cert MDT Balance/Gait/Functional tests Balance/Special Test Scores Oswestry Low Back Score: 10 Improvement % Improvement: 75
== END 2024-09-27 19:00 | disposition home or self-care (01) ==
LOC: PT 10:00
PROVIDERS: PCP Internal Medicine; Referring Provider Orthopaedic Surgery; Visit Provider Orthopaedic Surgery
DX: M54.50 Low back pain, unspecified (principal); M41.50 Other secondary scoliosis, site unspecified
CPT/HCPCS: 97035; 97110; 97162; 97530

== ENCOUNTER 2025-04-10 11:41 | Outpatient (RCR) | payer MEDICARE, OTHER, SELFPAY ==
--- NOTE | 2025-04-10 14:17 | HP.PTEVAL ---
Patient's Visit Information Visit Information Visit Information: RICK CHARLTON is a 84 year old F referred to Physical Therapy by Dr. Abran Hna DO with a diagnosis of R hip greater trochanteric bursitis. Date of Evaluation: 04/10/25 Physical Therapist: Adolfo Salas, PT, ATC Visit Plan Frequency: 1x/Week Duration: 1 Week Plan: Pt was issued HEP of R LE IT band stretch and stick rollout routine. Follow up or discharge in one month. Subjective Subjective: Pt notes her R hip pain has been present since September of this year. Pt notes she experiences pain on the middle portion of her R lateral thigh intermittently. Pt reports she has pain in her back as well, and has 3 bulging disks, but believes this is a different kind of pain. Pt notes she has increased pain in her back and her leg with prolonged standing and with prolonged walking. Pt denies pain while sitting. Pt also denies pain while she is laying on her right side. Pt denies any tingling or numbness secondary to pain. Pt reports no sleep difficulty, although she does take pain meds prior to bed. Pt is active with [employer] here, and notes she is able to perform most tasks in that class without pain. pt reports standing hip abduction movements increase her pain. Pt has had xrays of her hip, which were negative for any concerns. 0/10 pain in her R hip while sitting here at rest, 8/10 pain at worst. Pain R hip pain: Pain Intensity (Out of 10): 0 Pain Intensity Range: 8 Objective Objective: Neuro: B LE sensation is WNL to light touch Palpation: Pt is very tender throughout the distribution of R IT band. No obvious deformity present. MMT: B LE's are equal and strong throughout. ROM: B LE's are equal throughout Balance/Special Test Scores Lower Extremity Functional Score: 60 Goals Goal 1:: I with HEP after one visit Goal Time Frame: 4-6 Weeks Goal 2:: Decrease R leg pain x 50% to aid with increasing tolerance for ambulation Goal Time Frame: 4-6 Weeks Rehabilitation Potential Physical Therapy Diagnosis: R hip pain and limited ability to ambulate secondary to R hip IT band syndrome Rehabilitation Potential: Excellent Anticipated Interventions Patient/Client Instruction: Educate patient on: Condition and Plan of Care For the Purpose of:: To improve self management Therapeutic Exercise to Include: Flexibilty training and Active ROM For the Purpose of:: To decrease pain and To improve muscle performance and motor function Text: Thank you for the opportunity to evaluate your patient. For Medicare and Medicare HMO plans, please review the plan of care and approve it. It will need to be FAXED BACK to us at [phone] for Medicare purposes. For Medicare only, by signing this I certify the plan of care. Please let me know if there are questions or concerns regarding this plan of care. Physician Signature: Date:
--- NOTE | 2025-05-22 10:33 | HP.PT.NRP ---
Patient Information Patient Information: RICK CHARLTON was seen in my office for initial evaluation on 04/10/25. The following Plan of Care was established for this patient: POC Established Initial Frequency: 1x/Week Initial Duration: 1 Week Anticipated Interventions Patient/Client Instruction: Educate patient on: Condition and Plan of Care For the Purpose of:: To improve self management Therapeutic Exercise to Include: Flexibilty training and Active ROM For the Purpose of:: To decrease pain and To improve muscle performance and motor function Last Seen Last Seen: This patient was last seen in our office . Pertinent comments regarding their Physical therapy will appear below: Pt has not returned in greater than 30 days and is discontinued at this time. At this point I will be discontinuing this patient from physical therapy. I would be happy to see this patient again in the future if found appropriate by the physician. Thank you! Adolfo Salas, PT, ATC Balance/Gait/Functional tests Balance/Special Test Scores Lower Extremity Functional Score: 60
== END 2025-04-10 19:00 | disposition home or self-care (01) ==
LOC: PT 11:41
PROVIDERS: PCP Internal Medicine; Referring Provider Orthopaedic Surgery; Visit Provider Orthopaedic Surgery
DX: M70.61 Trochanteric bursitis, right hip (principal)
CPT/HCPCS: 97110; 97161